=== PATIENT | female | born 1955 | race African-American/Black ===

== ENCOUNTER 2020-05-24 11:29 | Inpatient (IN) ==
[2020-05-24 13:25] LABS: Basophils % 0.3 % (0.0-0.8); Eosinophils % 0.6 % (0.00-10.9); Hemoglobin 6.6 GM/DL (12.0-16.0); Immature Granulocytes Absolute 0.06 #; Lymphocytes # 1.2 10*3/uL (1.4-4.0); Lymphocytes % 18.4 % (21.3-54.2); Mean Corpuscular HGB Conc 31.4 GM/DL (32-36); Mean Corpuscular Volume 56.9 FL (87-102); Mean Platelet Volume 9.1 FL (9.6-12.0); Monocytes % 10.3 % (1.7-12.7); NRBC # 0.04 10*3/uL; Neutrophils % 69.4 % (38.7-73.9); Platelet Count 393 T/CUMM (130-400); Red Blood Count 3.69 MC/CUMM (3.8-5.5); Red Cell Distribution Width 20.5 % (9.3-17.3); White Blood Count 6.3 T/CUMM (4-12)
[2020-05-24 13:36] LABS: Alanine Aminotransferase 15 U/L (13-56); Albumin 3.2 G/DL (3.4-5.0); Aspartate Amino Transferase 20 U/L (0-37); Bilirubin,Total < 0.39 MG/DL (0.2-1.0); Blood Urea Nitrogen 17 MG/DL (7-18); Calcium 9.8 MG/DL (8.5-10.1); Carbon Dioxide 25 MMOL/L (21-32); Estimated Glom Filtration Rate 59 ML/MIN; Glucose 69 MG/DL (74-106); Osmolality,Calculated 278.4 MOS/KG (273-304); Potassium 3.6 MMOL/L (3.5-5.1); Sodium 140 MMOL/L (136-145); Total Protein 7.8 G/DL (6.4-8.3)
[2020-05-24 13:51] LABS: Alkaline Phosphatase 86 U/L (45-117)
[2020-05-24] MEDS ORDERED: MORPHINE 4 MG/1 ML VIAL IV STA (20:18)
[2020-05-24] MEDS ORDERED: ASPIRIN 325 MG TABLET PO STA (20:18)
[2020-05-24] MEDS ORDERED: ONDANSETRON 4 MG/2 ML VIAL IV STA (20:18)
[2020-05-24] MEDS ORDERED: ALUM/MAG/SIMETH/LIDO VISC 1:1 30 ML BOTTLE PO STA (20:18)
[2020-05-24] MEDS ORDERED: PANTOPRAZOLE 40 MG VIAL IV STA (20:18)
[2020-05-24 21:13] LABS: PT Patient Result 10.4 SECS (9.8-11.9)
[2020-05-24] MEDS ORDERED: ACETAMINOPHEN 325 MG TABLET PO PRN (21:20)
[2020-05-24] MEDS ORDERED: DEXTROSE 50% 25 GM/50 ML VIAL IV PRN (21:20)
[2020-05-24] MEDS ORDERED: GLUCAGON 1 MG VIAL IM PRN (21:20)
[2020-05-24] MEDS ORDERED: ONDANSETRON 4 MG/2 ML VIAL IV PRN (21:20)
[2020-05-24] MEDS ORDERED: SODIUM CHLORIDE 0.9% 1,000 ML IV PRN (21:25)
[2020-05-24] MEDS: SODIUM CHLORIDE 0.9% 1,000 ML IV SCH (21:30)
[2020-05-25] MEDS ORDERED: SODIUM CHLORIDE 0.9% 1,000 ML IV PRN (00:11)
[2020-05-25 05:01] LABS: Bilirubin,Urine Negative (Negative); Blood, Urine Negative (Negative); Glucose,Urine (UA) Negative (Negative); Ketones,Urine Negative (Negative); Mucus,Urine Occasional /LPF (Occasional); Nitrite,Urine Negative (Negative); Protein,Urine Negative; RBC,Urine <1 /HPF (0-4); Squamous Epithelial Cell,Urine Occasional /HPF (0-10); Urine Appearance CLEAR (Clear); Urine Color Yellow (Yellow); Urine Specific Gravity 1.014 (1.001-1.035); Urine Urobilinogen < 2.0 EU/DL (0.2-1.0); WBC,Urine 3 /HPF (0-6)
[2020-05-25] MEDS ORDERED: LEVOTHYROXINE 100 MCG TABLET PO SCH (06:30)
[2020-05-25] MEDS: ASPIRIN EC 81 MG TABLET PO SCH (09:41)
[2020-05-25] MEDS: GABAPENTIN 400 MG CAPSULE PO SCH (09:41)
[2020-05-25] MEDS: DEXAMETHASONE 4 MG TABLET PO SCH (09:42)
[2020-05-25] MEDS: FERROUS SULFATE 325 MG TABLET PO SCH ×3 (09:42→21:17)
[2020-05-25] MEDS: SODIUM CHLORIDE 0.9% 1,000 ML IV SCH ×3 (09:42→23:57)
[2020-05-25] MEDS: PANTOPRAZOLE 40 MG VIAL IV SCH ×2 (09:45→21:17)
[2020-05-25 10:52] LABS: Basophils % 0.3 % (0.0-0.8); Eosinophils # 0.1 10*3/uL (0.0-0.87); Eosinophils % 1.2 % (0.00-10.9); Hematocrit 26.7 VOL% (35.7-47.0); Hemoglobin 8.7 GM/DL (12.0-16.0); Immature Granulocytes % 0.3 %; Immature Granulocytes Absolute 0.02 #; Lymphocytes # 1.4 10*3/uL (1.4-4.0); Lymphocytes % 19.5 % (21.3-54.2); Mean Corpuscular HGB Conc 32.6 GM/DL (32-36); Mean Corpuscular Volume 63.9 FL (87-102); Mean Platelet Volume 8.9 FL (9.6-12.0); Monocytes % 10.9 % (1.7-12.7); NRBC # 0.04 10*3/uL; Neutrophils % 67.8 % (38.7-73.9); Platelet Count 314 T/CUMM (130-400); Red Blood Count 4.18 MC/CUMM (3.8-5.5); Red Cell Distribution Width 26.6 % (9.3-17.3); White Blood Count 7.3 T/CUMM (4-12)
[2020-05-25 11:37] LABS: Calcium 8.6 MG/DL (8.5-10.1); Osmolality,Calculated 275.7 MOS/KG (273-304); Risk Ratio 2.42; Thyroid Stimulating Hormone 17.8 uIU/ml (0.358-3.74); VLDL CHOLESTEROL 24.6 MG/DL
[2020-05-25 11:55] LABS: Platelet Estimate Normal
[2020-05-25 11:56] LABS: Anisocytosis 3+; Hypochromasia 1+; Target Cells 1+
[2020-05-25] MEDS ORDERED: SKIN HEALING OINT (AQUAPHOR) 50 GM TUBE TOP PRN (14:32)
[2020-05-26 06:05] LABS: Hematocrit 25.5 VOL% (35.7-47.0); Hemoglobin 8.1 GM/DL (12.0-16.0); Immature Granulocytes % 0.9 %; Immature Granulocytes Absolute 0.08 #; Lymphocytes # 1.3 10*3/uL (1.4-4.0); Lymphocytes % 15.3 % (21.3-54.2); Mean Corpuscular HGB Conc 31.8 GM/DL (32-36); Mean Corpuscular Volume 63.6 FL (87-102); Mean Platelet Volume 8.8 FL (9.6-12.0); NRBC # 0.07 10*3/uL; Neutrophils % 74.8 % (38.7-73.9); Platelet Count 312 T/CUMM (130-400); Red Blood Count 4.01 MC/CUMM (3.8-5.5); Red Cell Distribution Width 26.2 % (9.3-17.3); White Blood Count 8.4 T/CUMM (4-12)
[2020-05-26 06:26] LABS: Vitamin B12 515 PG/ML (211-911)
[2020-05-26 06:40] LABS: % Iron Saturation 43.8 % (18-50)
[2020-05-26 07:24] LABS: Sedimentation Rate-Westergren 68 MM/HR (0-30)
[2020-05-26] MEDS: LEVOTHYROXINE 125 MCG TABLET PO SCH (07:26)
[2020-05-26] MEDS: GABAPENTIN 400 MG CAPSULE PO SCH (08:54)
[2020-05-26] MEDS: FERROUS SULFATE 325 MG TABLET PO SCH ×3 (08:54→20:18)
[2020-05-26] MEDS: ASPIRIN EC 81 MG TABLET PO SCH (08:54)
[2020-05-26] MEDS: DEXAMETHASONE 4 MG TABLET PO SCH (08:54)
[2020-05-26] MEDS: PANTOPRAZOLE 40 MG VIAL IV SCH ×2 (09:17→20:19)
[2020-05-26] MEDS: LACTATED RINGERS 1,000 ML IV SCH (10:39)
[2020-05-26] MEDS ORDERED: LIDOCAINE 2% 5 ML VIAL ONE (10:58)
[2020-05-26] MEDS ORDERED: propofoL 200 MG/20 ML VIAL IV ONE (10:58)
[2020-05-26] MEDS: SODIUM CHLORIDE 0.9% 1,000 ML IV SCH (16:21)
[2020-05-26] MEDS: SIMETHICONE CHEW 80 MG TABLET PO SCH (20:18)
[2020-05-26] MEDS ORDERED: MELATONIN 3 MG TABLET PO SCH (21:00)
[2020-05-27] MEDS: LEVOTHYROXINE 125 MCG TABLET PO SCH (05:39)
[2020-05-27] MEDS: DEXAMETHASONE 4 MG TABLET PO SCH (09:03)
[2020-05-27] MEDS: SIMETHICONE CHEW 80 MG TABLET PO SCH ×2 (09:03→16:12)
[2020-05-27] MEDS: FERROUS SULFATE 325 MG TABLET PO SCH ×2 (09:03→16:12)
[2020-05-27] MEDS: GABAPENTIN 400 MG CAPSULE PO SCH (09:03)
[2020-05-27] MEDS: PANTOPRAZOLE 40 MG VIAL IV SCH (09:04)
[2020-05-27] MEDS: SODIUM CHLORIDE 0.9% 1,000 ML IV SCH (10:40)
[2020-05-27] MEDS: LACTATED RINGERS 1,000 ML IV SCH (10:40)
[2020-05-27 16:13] VITALS: BP 138/64
[2020-05-27] MEDS ORDERED: PANTOPRAZOLE 40 MG TABLET PO SCH (21:00)
[2020-05-31 12:55] LABS: Variant 19.3 = Hb C %
[2020-06-01 07:24] LABS: Hemoglobin A1 (Alkaline) 77.4 % (96.5-98.5); Hemoglobin A2 (Alkaline) 3.3 % (1.5-3.5); Hemoglobin C (Alkaline) 19.3 %
== END 2020-05-27 18:14 | disposition home or self-care (01) | DRG 378 ==
LOC: N.EDINP 11:29 → N.ED 11:29 → N.3E 21:51
PROVIDERS: ADMIT Hospitalist; ATTEND Hospitalist